=== PATIENT | male | born 1980 | race Caucasian/White ===

== ENCOUNTER 2018-11-08 21:52 | Emergency (ER) | payer OTHER ==
[~2018-11-08] VITALS: Ht 188 cm; Wt 109.1 kg
[2018-11-08 21:53] VITALS: BP 116/71
[2018-11-08] MEDS ORDERED: TRAZ-252 PO (22:01)
[2018-11-08] MEDS ORDERED: ESCI5SOL3 PO ×2 (22:01→22:22)
[2018-11-08] MEDS ORDERED: ESCITALOPRAM OXALATE 10 MG TAB (LEXAPRO) PO ONE (22:30)
[2018-11-08] MEDS ORDERED: LEXA1TAB2 PO (22:52)
== END 2018-11-08 22:56 | disposition home or self-care (01) ==
LOC: M ED 21:52
DX: Z76.0 Encounter for issue of repeat prescription (principal); F41.9 Anxiety disorder, unspecified; Z79.899 Other long term (current) drug therapy